=== PATIENT | male | born 1940 | race Caucasian/White ===

== ENCOUNTER 2016-09-04 08:56 | Inpatient (IN) | payer OTHER ==
[~2016-09-04] VITALS: Ht 185.4 cm; Wt 93.5 kg
--- NOTE | 2016-09-04 09:08 | NUR ---
PT C/O N/V/ WITH CHEST PAIN THIS AM. CALLED 911 AND TOOK 324 ASP PER PROTOCOL FROM DISPACTHER. HAS BEEN HAVING N/V SINCE 1300 YESTERDAY. PATIENT UPON ARRIVAL FROM EMS DENIES CHEST PAIN AND DID RECEIVE 1 NITRO EN ROUTE. PT STILL HAS 9/10 ABD PAIN. LAST VOMITING THIS AM 0400. HAD RECENT ANGIOGRAM 5 DAYS AGO AT [place]. HAS CARDIAC HX. PT IS ALERT AND ORIENTED WITH STABLE VITALS UPON ARRIVAL WITH 0 S/S DISTRESS NOTED. CONNECTED TO EVP HEAD OF [employer] [employer] AND STAT EKG PERFORMED. DR BOND AT BEDSIDE FOR EVAL.
[2016-09-04] MEDS ORDERED: SIMVASTATIN20 M1 PO (09:11)
[2016-09-04] MEDS ORDERED: NATURAL IRON65 MG PO (09:11)
[2016-09-04] MEDS ORDERED: ASPIR 8181 MG PO (09:11)
[2016-09-04] MEDS ORDERED: XARELTO10 M1 PO (09:11)
[2016-09-04] MEDS ORDERED: NITROSTAT0.4 MG SL (09:12)
[2016-09-04] MEDS ORDERED: PRILOSEC OTC20 M1 PO (09:12)
[2016-09-04] MEDS ORDERED: HYDROCORTISONE20 MG PO (09:12)
[2016-09-04] MEDS ORDERED: ALLOPURINOL100 MG PO (09:12)
[2016-09-04] MEDS ORDERED: FLUDROCORTISON0.1 MG PO (09:13)
[2016-09-04] MEDS ORDERED: GEMFIBROZIL600 MG PO (09:13)
[2016-09-04] MEDS ORDERED: METOPROLOL SUCC50 M2 PO (09:13)
[2016-09-04] MEDS ORDERED: ISOSORBIDE MONO60 MG PO (09:13)
[2016-09-04] MEDS ORDERED: PAROXETINE HCL40 M1 PO (09:13)
[2016-09-04] MEDS ORDERED: SYNTHROID0.075 MG PO (09:14)
[2016-09-04] MEDS ORDERED: RANEXA500 M2 PO (09:14)
--- NOTE | 2016-09-04 09:24 | NUR ---
LAB AT BEDSIDE
--- NOTE | 2016-09-04 09:36 | NUR ---
PT LEFT FOR CT VIA [facility]
[2016-09-04 09:43] LABS: CALCIUM 9.3 mg/dL (8.5-10.1); CARBON DIOXIDE 27.8 mmol/L (21-32); CHLORIDE SERUM 99 mmol/L (98-107); CREATININE SERUM 1.1 mg/dL (0.7-1.3); GLUCOSE SERUM 109 mg/dL (74-106); POTASSIUM SERUM 4.1 mmol/L (3.5-5.1); SODIUM SERUM 137 mmol/L (136-145)
--- NOTE | 2016-09-04 09:43 | NUR ---
PT RETURNED FROM CT VIA [facility]
[2016-09-04 09:51] LABS: PLATELET COUNT 116 x10^3mcL (130-400); RED CELL DISTRIBUTION WIDTH 21.8 % (11.5-14.5)
[2016-09-04 09:55] LABS: ALBUMIN 4.3 g/dL (3.4-5.0); ALKALINE PHOSPHATASE 99 U/L (46-116); ALT/SGPT 21 U/L (16-63); AST/SGOT 18 U/L (15-37); BILIRUBIN TOTAL 0.71 mg/dL (0.20-1.00); CHOLESTEROL 159 mg/dL (<200); LIPASE 77 IU/L (73-393); TOTAL PROTEIN, SERUM 7.9 g/dL (6.4-8.2)
[2016-09-04 10:05] LABS: AMYLASE 15 U/L (25-115); HDL CHOLESTEROL 27 mg/dL (40-60)
[2016-09-04 10:28] LABS: BAND NEUTROPHIL 5 % (0-10); BASOPHIL 0 % (0-2); MONOCYTE 15 % (0-7); MYELOCYTE 1 % (0-2); SEGMENTED NEUTROPHILS 56 % (37-75)
[2016-09-04 10:29] LABS: rbc morphology (normal/abnorm) ABNORMAL (NORMAL)
[2016-09-04 10:30] LABS: ovalocyte/elliptocyte 1+
--- NOTE | 2016-09-04 11:06 | NUR ---
DR BOND AT BEDSIDE SPEAKING WITH PT AND FAMILY
[2016-09-04 11:08] LABS: UA SPECIFIC GRAVITY >=1.030 (1.005-1.035); microscopic required? YES; urine erythrocyte NEGATIVE (NEGATIVE)
--- NOTE | 2016-09-04 11:46 | NUR ---
report given to jame kohli rn
[2016-09-04 12:27] VITALS: BP 132/78
--- NOTE | 2016-09-04 12:30 | NUR ---
PT RESTING IN BED, IN NO RESP. DISTRESS. AWAKE AND ALERT. ADMISSION ASSESMENT COMPLETEDBY MESERET. PT ORIENTED TO ROOM AND CALL LIGHT WITHIN REACH. FAMILY AT BEDSIDE. NO C/O PAIN AT THIS TIME. WILL CONTINUE W/PLAN OF CARE.
[2016-09-04] MEDS ORDERED: METOPROLOL TART25 M1 PO (13:05)
[2016-09-04 13:43] LABS: MAGNESIUM 2.4 mg/dL (1.8-2.4); PHOSPHOROUS 3.1 mg/dL (2.5-4.9)
[2016-09-04 13:51] VITALS: BP 124/47
[2016-09-04 14:00] LABS: FREE T4 1.07 ng/dL (0.76-1.46); FREE THYROXINE INDEX 2.2 ug/dL (1.4-4.5); T4(THYROXINE) 6.7 ug/dL (4.7-13.3)
[2016-09-04 14:06] LABS: T3 TOTAL 1.16 ng/mL
--- NOTE | 2016-09-04 16:52 | NUR ---
PNEUMOCOCCAL VACCINE GIVEN TO LT UPPER ARM. NO REACTION NOTED.
[2016-09-04 16:53] VITALS: BP 128/51
--- NOTE | 2016-09-04 17:33 | NUR ---
PT MEDICATED WITH TYLENOL FOR [facility] WITH FAIR RELIEF. RESTING IN BED, NO DISTRESS. NO C/O PAIN. FAMILY AT BEDSIDE.
--- NOTE | 2016-09-04 18:44 | NUR ---
REMAINS IN NO DISTRESS. AWAKE AND ALERT. NO CHNAGES IN VS. NO C/O CHEST PAIN AT THIS TIME. IVF INFUSING WELL ANAD SITE CLEAR. FAMILY AT BEDSIDE. CALL LIGHT WITHIN REACH. WILL BE ENDORSED TO INCOMING SHIFT.
--- NOTE | 2016-09-04 19:51 | NUR ---
PT CURRENTLY RESTING IN BED, NO ACUTE DISTRESS. A/O X4. TELE #40 SHOWING SINUS RHYTHM, DENIES CHEST PAIN. PULSES PALPABLE IN ALL EXTREMITIES, NO EDEMA NOTED. LUNG SOUNDS CTA BILATERALLY. BOWEL SOUNDS ACTIVE, LAST BM 09/04/16. VOIDING WELL. AMBULATORY. SKIN INTACT. DENIES PAIN AT THIS TIME. IV PATENT AND INTACT. BED IN LOWEST POSITION, SIDE RAILS UP X2, SCDS IN PLACE, CALL LIGHT WITHIN REACH. WILL CONTINUE TO MONITOR.
[2016-09-04 21:32] VITALS: BP 140/70
--- NOTE | 2016-09-05 02:40 | NUR ---
PT CURRENTLY RESTING IN BED, NO ACUTE DISTRESS. WILL CONTINUE TO MONITOR.
--- NOTE | 2016-09-05 06:07 | NUR ---
PT SLEPT PERIODICALLY THROUGHOUT NIGHT. NO ACUTE DISTRESS. ALL NEEDS MET AND ATTENDED TO. NO SIGNIFICANT CHANGES. IV PATENT AND INTACT. MEDICATED PAIN PER EMAR. BED IN LOWEST POSITION, SIDE RAILS UP X2, CALL LIGHT WITHIN REACH. WILL ENDORSE CARE TO ONCOMING NURSE.
[2016-09-05 06:21] VITALS: BP 137/79
[2016-09-05 06:25] LABS: CALCIUM 8.4 mg/dL (8.5-10.1); CARBON DIOXIDE 27.4 mmol/L (21-32); CHLORIDE SERUM 106 mmol/L (98-107); GLUCOSE SERUM 103 mg/dL (74-106); MAGNESIUM 2.8 mg/dL (1.8-2.4); PHOSPHOROUS 2.9 mg/dL (2.5-4.9); POTASSIUM SERUM 4.1 mmol/L (3.5-5.1); SODIUM SERUM 139 mmol/L (136-145)
--- NOTE | 2016-09-05 07:41 | NUR ---
PT ENDORSE TO ME THIS MORNING, SLEEPING AT THIS TIME, NO ACUTE DISTRESS NOTE OR PAIN . IV INTACT L HAND, NO SWELLING OR REDNESS NOTED. CALL LIGHT IN REACH, BED LOW POSITION, WILL CONTINUE PLAN OF CARE.
[2016-09-05 08:08] LABS: PLATELET COUNT 96 x10^3mcL (130-400); RED CELL DISTRIBUTION WIDTH 21.5 % (11.5-14.5)
[2016-09-05 08:18] LABS: ATYPICAL LYMPH 3 %; BAND NEUTROPHIL 7 % (0-10); BASOPHIL 0 % (0-2); METAMYELOCTE 2 % (0-2); MONOCYTE 21 % (0-7); MYELOCYTE 3 % (0-2); SEGMENTED NEUTROPHILS 44 % (37-75)
[2016-09-05 08:19] LABS: PLATELET MORPHOLOGY PLATELETS DECREASED; rbc morphology (normal/abnorm) ABNORMAL (NORMAL)
--- NOTE | 2016-09-05 08:30 | NUR ---
AM ROUNDS DONE BY DR. GONSALES AND MEDICAL TEAM, PLAN TO CONT. WITH CURRENT TX. AND WAITING FOR REPORT FROM [facility]. PT AGREED WITH PLAN.
[2016-09-05 08:44] VITALS: BP 129/66
--- NOTE | 2016-09-05 09:00 | NUR ---
GAVE PT AM MEDS, TOLERATED THEM WELL. PT IS NOW RESTING IN BED, CALL LIGHT IN REACH, BED IN LOW POSITION, WILL CONTINUE PLAN OF CARE.
--- NOTE | 2016-09-05 12:45 | NUR ---
PT IS SLEEPING, RESTING VERY COMFORTABLE. NO ACUTE RESP DISTRESS NOTED. CALL LIGHT IN REACH, BED IN LOW POSITION, WILL CONTINUE PLAN OF CARE.
[2016-09-05 13:41] VITALS: BP 99/61
[2016-09-05 17:29] VITALS: BP 95/56
--- NOTE | 2016-09-05 19:00 | NUR ---
PT IS RESTING AND WATCHING TV AT THIS TIME. PT DENIES ANY ABD PAIN OR DISTRESS AT THIS TIME. CALL LIGHT IN REACH, BED IN LOW POSITION. WILL ENDORSE PT TO INCOMING NURSE.
--- NOTE | 2016-09-05 19:09 | NUR ---
NURSING CO-SIGN THE DOCUMENTATION ENTERED BY THE RN LONA HAS BEEN REVIEWED. REVIEWED/CO-SIGNED BY: Cynthia Montes De Oca DOCUMENTATION DONE BY:TIM LARA
--- NOTE | 2016-09-05 19:52 | NUR ---
PT CURRENTLY RESTING IN BED, NO ACUTE DISTRESS. A/O X4. TELE #40 SHOWING SINUS RHYTHM. DENIES CHEST PAIN. PULSES PALPABLE IN ALL EXTREMITIES, NO EDEMA NOTED. LUNG SOUNDS CTA BILATERALLY. BOWEL SOUNDS ACTIVE, LAST BM 09/04/16. VOIDING WELL. AMBULATORY. SKIN INTACT. C/O ABD CRAMPING, PAIN 3/10, TOLERABLE. IV PATENT AND INTACT. BED IN LOWEST POSITION, SIDE RAILS UP X2, CALL LIGHT WITHIN REACH. WILL CONTINUE TO MONITOR.
[2016-09-05 20:58] VITALS: BP 106/60
--- NOTE | 2016-09-06 00:56 | NUR ---
PT CURRENTLY RESTING IN BED, NO ACUTE DISTRESS. WILL CONTINUE TO MONITOR.
[2016-09-06 06:00] VITALS: BP 105/62
--- NOTE | 2016-09-06 06:28 | NUR ---
PT SLEPT PERIODICALLY THROUGHOUT NIGHT, NO ACUTE DISTRESS. ALL NEEDS MET AND ATTENDED TO. NO SIGNIFICANT CHANGES. IV PATENT AND INTACT. MEDICATED PAIN PER EMAR. BED IN LOWEST POSITION, SIDE RAILS UP X2, CALL LIGHT WITHIN REACH. WILL ENDORSE CARE TO ONCOMING NURSE.
[2016-09-06 06:49] LABS: CALCIUM 8.8 mg/dL (8.5-10.1); CARBON DIOXIDE 27.7 mmol/L (21-32); CHLORIDE SERUM 100 mmol/L (98-107); GLUCOSE SERUM 91 mg/dL (74-106); POTASSIUM SERUM 4.1 mmol/L (3.5-5.1); SODIUM SERUM 135 mmol/L (136-145)
--- NOTE | 2016-09-06 07:23 | NUR ---
PT WAS ENDORSE TO ME, PT RESTING IN BED VERY COMFORTABLE AND DENIES ANY ABD PAIN AT THIS TIME. CALL LIGHT IN REACH, BED IN LOW POSITION, WILL CONTINUE PLAN OF CARE.
[2016-09-06 08:43] VITALS: BP 113/66
[2016-09-06 09:12] LABS: PLATELET COUNT 91 x10^3mcL (130-400); RED CELL DISTRIBUTION WIDTH 21.9 % (11.5-14.5)
[2016-09-06 09:15] LABS: BAND NEUTROPHIL 4 % (0-10); BASOPHIL 0 % (0-2); MONOCYTE 26 % (0-7); SEGMENTED NEUTROPHILS 52 % (37-75)
[2016-09-06 09:16] LABS: PLATELET MORPHOLOGY D; rbc morphology (normal/abnorm) ABNORMAL (NORMAL)
--- NOTE | 2016-09-06 09:51 | NUR ---
DR. WEBB AND TEAM MADE ROUNDS THIS MORNING, PT WILL BE DISCHARGE.
[2016-09-06 11:31] VITALS: BP 113/66
--- NOTE | 2016-09-06 12:39 | NUR ---
PT DISCHARGE, EXPLAIN DC INSTRUCTIONS. VS STABLE, HEPLOCK REMOVED, PT DENIES ANY CHEST PAIN, ABD PAIN NOR NAUSEA AND VOMITING.
--- NOTE | 2016-09-06 15:37 | NUR ---
NURSING CO-SIGN THE DOCUMENTATION ENTERED BY THE RN LONA HAS BEEN REVIEWED. REVIEWED/CO-SIGNED BY: Cynthia Montes De Oca DOCUMENTATION DONE BY:JANE DUMONT
== END 2016-09-06 12:30 | disposition home or self-care (01) | DRG 391 ==
LOC: ED 08:56 → DU 11:23 → MU 09-05 18:34 → DU 09-05 19:04
PROVIDERS: Emergency Medicine; Family Medicine; ADMIT Family Medicine
DX: K52.9 Noninfective gastroenteritis and colitis, unspecified (principal); N17.0 Acute kidney failure with tubular necrosis; I50.43 Acute on chronic combined systolic (congestive) and diastolic (congestive) heart failure; I25.810 Atherosclerosis of coronary artery bypass graft(s) without angina pectoris; M10.9 Gout, unspecified; M94.0 Chondrocostal junction syndrome [Tietze]; H40.9 Unspecified glaucoma; E03.9 Hypothyroidism, unspecified; Z79.82 Long term (current) use of aspirin; Z68.27 Body mass index [BMI] 27.0-27.9, adult; Z95.1 Presence of aortocoronary bypass graft; Z95.5 Presence of coronary angioplasty implant and graft
CPT/HCPCS: 83880; 84439; 90732; J2405; J3010; J7030; Q0092